=== PATIENT | male | born 1995 | race African-American/Black ===

== ENCOUNTER 2016-08-30 02:19 | Emergency (ER) | payer SELFPAY ==
[~2016-08-30] VITALS: Ht 177.8 cm; Wt 81.6 kg
[2016-08-30 04:01] LABS: BILIRUBIN,URINE NEGATIVE (NEG); GLUCOSE,URINE NEGATIVE (NEG); NITRITE,URINE NEGATIVE (NEG); PROTEIN,URINE NEGATIVE (NEG-TRACE); UROBILINOGEN,URINE 0.2 mg/dL (0.2 mg/dL)
[2016-08-30 04:07] LABS: BARBITURATES NEG (NEG); BENZODIAZEPINES NEG (NEG); CANNABINOIDS POS (NEG); COCAINE NEG (NEG); METHADONE NEG (NEG); OPIATES NEG (NEG); PHENCYCLIDINE NEG (NEG)
[2016-08-30 04:19] LABS: BACTERIA,URINE 0 /HPF (0-FEW); RBC,URINE 0 /HPF (0-2); SQUAMOUS EPITHELIAL CELL,UR OCC /LPF; WBC,URINE OCC /HPF (0-4)
[2016-08-30 04:30] VITALS: BP 164/91
--- NOTE | 2016-08-30 04:51 | PHYS DOC ---
Past Medical History Past Medical History: No Pertinent History Past Surgical History: No Surgical History Alcohol Use: Occasionally Drug Use: Marijuana Adult General Chief Complaint Chief Complaint: Palpitations HPI HPI Patient is a 21 year old male who presents with complaint of "racing heartbeat. " Patient states that he started feeling the symptoms shortly after smoking marijuana approximately 2 hours ago. Patient states that he is having a fluttering feeling in his chest at this time. Patient states that this is causing him to become more anxious. Patient states that he does have history of anxiety. The patient states that he has been under a significant amount of stress which is why he smoked marijuana. Patient denies any other drug use. Patient denies any history of known heart trouble and no history of asthma. Patient denies shortness of breath currently. The patient's symptoms caused him concern which is why he came to the emergency department for evaluation. Patient currently rates discomfort in his chest as 2 out of 3 and states it is mostly along the left side. Discomfort does not radiate. Review of Systems Review of Systems Constitutional: Anxiety, denies fever or chills [] Eyes: Denies change in visual acuity, redness, or eye pain [] HENT: Denies nasal congestion or sore throat [] Respiratory: Denies cough or shortness of breath [] Cardiovascular: Left-sided chest pain, denies edema [] GI: Denies abdominal pain, nausea, vomiting, bloody stools or diarrhea [] : Denies dysuria or hematuria [] Musculoskeletal: Denies back pain or joint pain [] Integument: Denies rash or skin lesions [] Neurologic: Denies headache, focal weakness or sensory changes [] Allergies Allergies Allergies Coded Allergies Type Severity Reaction Last Updated Verified No Known Drug Allergies 08/30/16 No Physical Exam Physical Exam Constitutional: Alert, afebrile, appears anxious. [] HENT: Normocephalic, atraumatic, bilateral external ears normal, oropharynx moist, no oral exudates, nose normal. [] Eyes: PERRLA, EOMI, conjunctiva normal, no discharge. [] Neck: Normal range of motion, no tenderness, supple, no stridor. [] Cardiovascular:Heart rate regular rhythm, no murmur [] Lungs & Thorax: Bilateral breath sounds clear to auscultation [] Abdomen: Bowel sounds normal, soft, no tenderness, no masses, no pulsatile masses. [] Skin: Warm, dry, no erythema, no rash. [] Back: No tenderness, no CVA tenderness. [] Extremities: No tenderness, no cyanosis, no clubbing, ROM intact, no edema. [] Neurologic: Alert and oriented X 3, normal motor function, normal sensory function, no focal deficits noted. [] Current Patient Data Vital Signs Vital Signs Date Time Temp Pulse Resp B/P (MAP) Pulse Ox O2 Delivery O2 Flow Rate FiO2 08/30/16 04:30 68 18 164/91 (115) 97 Room Air 08/30/16 02:39 98.6 98.6 Lab Values Laboratory Tests Test 08/30/16 03:45 Urine Collection Type Unknown Urine Color Yellow Urine Clarity Clear Urine pH 6.0 Urine Specific Busy 1.010 Urine Protein Negative mg/dL (NEG-TRACE) Urine Glucose (UA) Negative mg/dL (NEG) Urine Ketones (Stick) Negative mg/dL (NEG) Urine Blood Negative (NEG) Urine Nitrite Negative (NEG) Urine Bilirubin Negative (NEG) Urine Urobilinogen Dipstick 0.2 mg/dL (0.2 mg/dL) Urine Leukocyte Esterase Negative (NEG) Urine RBC 0 /HPF (0-2) Urine WBC Occ /HPF (0-4) Urine Squamous Epithelial Cells Occ /LPF Urine Bacteria 0 /HPF (0-FEW) Urine Hyaline Casts Occasional /HPF Urine Mucus Slight /LPF Urine Opiates Screen Neg (NEG) Urine Methadone Screen Neg (NEG) Urine Barbiturates Neg (NEG) Urine Phencyclidine Screen Neg (NEG) Urine Amphetamine/Methamphetamine Neg (NEG) Urine Benzodiazepines Screen Neg (NEG) Urine Cocaine Screen Neg (NEG) Urine Cannabinoids Screen Pos (NEG) Urine Ethyl Alcohol Neg (NEG) EKG EKG Interpreted by me: Heart rate 72, sinus rhythm, normal intervals, normal axis, no acute ST/T-wave abnormalities present [] Radiology/Procedures Radiology/Procedures Two-view chest x-ray interpreted by me: No pulmonary infiltrates or effusions, normal cardiac silhouette [] Course & Med Decision Making Course & Med Decision Making Pertinent Labs and Imaging studies reviewed. (See chart for details) Patient was monitored throughout his entire emergency department stay. Patient was asked if he was feeling symptoms of fast heart rate while on the monitor with a normal heart rate of 65 bpm. The patient at that time stated that he did feel like his heart rate was beating fast. The patient was provided reassurance that his heart rate was within normal limits. Patient has no other abnormal findings on exam. The patient states his symptoms did resolve spontaneously while in the emergency department and the patient stated that he wanted to go home at that time. Counseled patient on drug use and recommended abstaining from any further drug use as this may exacerbate his symptoms. Advise follow-up with primary doctor in 3-5 days and return to emergency department for any worsening symptoms. Patient voiced understanding and in agreement with treatment plan. Dragon Disclaimer Dragon Disclaimer This electronic medical record was generated, in whole or in part, using a voice recognition dictation system. Departure Departure Impression: Primary Impression: Anxiety Disposition: 01 HOME, SELF-CARE Condition: IMPROVED Referrals: NO PCP (PCP) Patient Instructions: Anxiety and Panic Attacks Additional Instructions: Follow-up with your primary doctor in 3-5 days for reevaluation. Return to emergency department for any worsening symptoms. DIANNE SHAH MD Aug 30, 2016 04:51
--- NOTE | 2016-08-30 07:56 | RAD ---
EXAM: CHEST 2 VIEWS History: Left-sided chest pain COMPARISON: None available. TECHNIQUE: PA and lateral chest radiographs FINDINGS: The cardiomediastinal silhouette is within normal limits. The lungs are clear bilaterally. The costophrenic sulci are clear and well demarcated bilaterally. IMPRESSION: No radiographic evidence of an acute cardiopulmonary abnormality.
--- NOTE | 2016-08-30 12:20 | EKG ---
[facility] [address] [place] [address] Test Date: 2016-08-30 Test Time: 02:46:05 Pat Name: DEE CORONADO Department: Room: Gender: Instructional Design Consultant: : 1995 Requested By: DIANNE SHAH Order Number: [id number] Reading MD: Measurements Intervals [place] Rate: 72 P: 41 OK: 152 QRS: 41 QRSD: 94 T: 24 QT: 358 QTc: 393 Interpretive Statements SINUS RHYTHM LEFT ATRIAL ABNORMALITY RI6.01 Unconfirmed report No previous ECG available for comparison
== END 2016-08-30 04:53 | disposition home or self-care (01) ==
LOC: ER 02:19
DX: F41.9 Anxiety disorder, unspecified (principal); R07.89 Other chest pain; F12.10 Cannabis abuse, uncomplicated
CPT/HCPCS: 71020; 80305; 80320; 81001; 93005; G0481; 99285-25